=== PATIENT | male | born 1985 | race Caucasian/White ===

== ENCOUNTER → 2016-08-11 | Day surgery (SDC) | payer OTHER ==
--- NOTE | 2016-08-10 17:17 | History and Physical ---
"History & Physical Date of Service August 10, 2016. History & Physical Chief Complaint: follow up valvular heart disease, permanent pacemaker History of Present Illness: Luis Gallagher Is a 31-year-old male who had recently been seen in cardiology consultation by the undersigned to establish care on 07/14/2016. He had previously followed with cardiology note patrica flores to consolidate his cardiac care to the [facility] system as he already follows with Dr. Michael of nephrology and Dr Julian of cardiothoracic surgery. His history dates back to 2007 when he presented to the emergency department in [place] with acute kidney failure at the age of 22. He describes having needed emergency dialysis at that time initially through a temporary right internal jugular dialysis catheter. He was subsequently diagnosed with IgA nephropathy and required hemodialysis. 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 He describes having had a bioprosthetic aortic valve replacement in [place] due to concerns of [place] aortic valve endocarditis in 2009. He states that 6 months later he was hospitalized at [facility] due to concerns of endocarditis that perhaps never completely resolved and affected his bioprosthetic aortic valve and also caused conduction system disease and therefore he underwent redo aortic valve replacement with placement of a homograft in the aortic valve position as well as a dual-chamber Medtronic permanent pacemaker in 2010. 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 In 2011 he underwent a kidney transplant and has been off of hemodialysis. In January, he was initially hospitalized in [place] with chest discomfort that was felt to perhaps be due to pericarditis. An echocardiogram however revealed an echodensity on the aortic valve homograft and he was transferred to [facility] for another opinion. A transesophageal echocardiogram performed at [facility] on 02/04/2016 revealed heavy calcification of the aortic valve homograft with a large mobile echodensity attached aortic valve leaflets was felt to represent vegetation or degenerative changes of the valve. Severe he centric aortic valve regurgitation was noted as well as moderate prosthetic aortic valve stenosis. There is concern about a small mobile echodensity attached to the pacemaker catheter near the junction of the tricuspid valve. Severe mitral regurgitation was also noted. Moderate tricuspid regurgitation was noted. Surgery was recommended at that time the patient declined and subsequently returned and underwent cardiac surgery in February,. The patient therefore underwent redo median sternotomy, redo aortic valve replacement with a #25 St Kip Epic bioprosthetic AVR, Redo ascending aortic graft replacement with a #30 Gelwave graft, Bioprosthetic mitral valve replacement with a #31 St Kip Epic MVR, and tricuspid valve annuloplasty with # [address] Triad [address] performed by [address] Julian on 03/24/17. The patient has been on Coumadin since his surgery. When I had seen him last month, he denies any chest discomfort. His main concern was determining when he could stop Coumadin. He has since had a recent pacemaker check that revealed appropriate pacemaker function. He is ventricular paced 100% the time. His underlying rhythm is complete AV block with no significant underlying ventricular rhythm. A follow up transthoracic echocardiogram had been performed at [facility] on 07/21/2016 to establish new baseline echocardiogram. Mild concentric left ventricular hypertrophy was present with normal LV EF. Severe left atrial enlargement was noted. Bioprosthetic aortic valve replacement was present. The gradients across the bioprosthetic aortic valve prosthesis were within normal limits. No significant aortic valve prosthesis regurgitation was noted. The mitral valve prosthesis was noted to have borderline elevated is diastolic gradients concerning for obstruction. Further evaluation with transesophageal echocardiogram was therefore recommended. Review of Systems: A Complete Review of 10 Systems is as stated above or negative. 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 Erythrocytosis Other nonspecific finding on examination of urine Acute renal transplant rejection Kidney disease, chronic, stage III (GFR 30-59 ml/min) Carcinoid tumor of stomach Hemangioma Pain in thoracic spine Homograft cardiac valve stenosis Aortic valve stenosis Mitral regurgitation Acute pericarditis Aortic valve regurgitation Endocarditis S/P aortic valve replacement S/P mitral valve replacement with bioprosthetic valve Past Surgical History: Procedure Laterality Date AORTIC VALVE REPLACEMENT WITH CABG WITH PROSTHETIC VALVE 03/24/2016 REPLACEMENT AORTIC VALVE performed by Hilton Julian MD at [facility] AORTIC VALVE REPLACEMENT WITH STENTLESS VALVE 11/05 AORTIC VALVE REPLACEMENT WITH STENTLESS VALVE 05/16/10 redo ASCENDING AORTA GRAFT W/BYPASS,ROOT REPLACE 03/24/2016 ASCENDING AORTIC ANEURYSM GRAFT USING PROSTHESIS AND CORONARY RECONSTRUCTION performed by Hilton Julian MD at OR [facility] BACK/FLANK TUMOR RESECTION, UNDER 5 CM Right 08/21/2015 08/21/2015 RADICAL RESECTION TUMOR BACK OR FLANK performed by Srinivas Brito MD at [facility] CORONARY ANGIOGRAPHY W/LEFT HEART CATH 02/05/2016 CORONARY ANGIOGRAPHY W/LEFT HEART CATH performed by Douglas Zamora MD at CARDIAC LABS [facility] INSER DEANDRA CAT,W/O PUMP;5YR/OLD 01/15/2012 INSERT TUNNELED CENTRAL VENOUS CATHETER* performed by Jerald Portillo MD at RADIOLOGY [facility] RENAL BIOPSY, PERCUTANEOUS (TROCAR/NEEDLE) 01/13/2012 RENAL BIOPSY PERCUTANEOUS performed by Jerry Fontana MD at OR [facility] RENAL BIOPSY, PERCUTANEOUS (TROCAR/NEEDLE) 02/01/2012 RENAL BIOPSY PERCUTANEOUS performed by Jerry Fontana MD at [facility] REPAIR TRICUSPID VALVE, W/RING 03/24/2016 VALVULOPLASTY TRICUSPID VALVE WITH RING performed by Hilton Julian MD at [facility] REPLACE MITRAL VALVE W/BYPASS 03/24/2016 REPLACEMENT MITRAL VALVE performed by Hilton Julian MD at [facility] TRANSPLANTATION OF KIDNEY 04/29/2011 RENAL TRANSPLANT performed by ABDIRIZAK MARIE at [facility] Family History: Mother: at age 52 of unknown causes Father: alive, at age 60, no hear disease Siblings: no heart disease Social History: Social History Marital status: Spouse name: Sharon Occupational History diability Social History Main Topics Smoking status: Former Smoker Packs/day: 0.25 Years: 11.00 Types: Cigarettes Quit date: 04/29/2011 Smokeless tobacco: Never Used Alcohol use No Allergies: Review of patient's allergies indicates no known allergies. Outpatient Medications: Medication Instructions warfarin sodium (COUMADIN) 4 MG Tablet Take as directed by anticoagulation pharmacist. Iron-Vitamin C (VITRON-C) 65-125 MG Tablet Take 1 Tab by mouth 2 times a day. tacrolimus (PROGRAF) 1 MG Capsule 2 mg in the am, 3 mg in the pm levothyroxine (LEVOXYL) 50 MCG Tablet Take 1 Tab by mouth daily first thing in the morning. (at least 30 min prior to breakfast or other meds) mycophenolate mofetil (CELLCEPT) 250 MG Capsule Take 2 Caps by mouth 2 times a day. VITAMIN D 2000 UNITS PO CAPS 3 CAPSULEs DAILY DICLOXACILLIN SODIUM 500 MG PO CAPS 3 times daily OBJECTIVE/PHYSICAL EXAMINATION: Vitals from 07/14/16: BP 120/60 | Pulse 84 | Resp 14 | Wt 177 lbs 9.6 oz ( 80.559kg) | BMI 26.61 kg/m | BSA 1.97 m General: no acute distress and stated age Eyes: conjunctiva are pink and non-injected, sclera clear Neck: normal jugular venous pulse, no hepatojugular reflux Chest: normal shape and normal respiratory effort Lungs: clear to auscultation and percussion Cardiac Exam: - regular heart sounds, no murmurs, rubs, or gallops Abdomen: abdomen soft, non-tender, no abnormal masses and no hepatosplenomegaly Musculoskeletal: no gait disturbance, no weakness Extremities: no edema and no cyanosis Neuro: grossly normal exam Psych: appropriate affect and insight. Data: INR performed 08/04/2016 was 3 complete blood count dated 07/17/2016: WBC 8.19, hemoglobin 14, platelet count 258 chemistry panel 07/17/2016: BUN 28, creatinine 1.7, calculated GFR 51.1, sodium 136, potassium 4.7, chloride 102 CO2 21, calcium 9.5, calcium 3.8 IMPRESSION: 31 year old year old male with history of complex valvular heart disease and conduction system disease requiring pacemaker. On 03/24/2016 he underwent redo median sternotomy with bioprosthetic aortic valve replacement (third AVR), bio MVR, and TV annuloplasty ring. He has a prior history of dual-chamber Medtronic permanent pacemaker that was placed due rupinder-aortic valvular abscess with conduction system complications at the time of his second heart surgery in 2010. The patient has a history of IgA nephropathy, transient dialysis, and underwent kidney transplant in 2011 he seems stable from a kidney standpoint on chronic immunosuppressive therapy. Recent transthoracic echocardiogram has suggested elevated diastolic gradients across the mitral valve concerning for mitral stenosis. RECOMMENDATIONS/PLAN: Recommend proceeding with CARIDAD for further assessment of the MV prosthesis as well as the AV prosthesis and TV repair. His recent blood work revealed stable findings. Raman Villalta DO"
[2016-08-11] VITALS (11 sets, daily range): BP systolic 90–139; BP diastolic 42–86; PULSE 76–90; TEMP 36.8; O2SAT 95–100; Ht 172.7 cm; Wt 82.0 kg
[~2016-08-11] VITALS: Ht 172.7 cm; Wt 82.0 kg
[~2016-08-11] MED LIST: CHOL2000 PO; DCL/500 PO; ETOMIDATE 2 MG/ML 20 ML VIAL IV ONE; FERRTAB18 PO; LEVO50TA6 PO; LIDOCAINE HCL 2% 2 ML VIAL (20MG/ML) ONE; METO25TA3 PO; MYCO250C26 PO; PROPOFOL IV EMULSION 10 MG/ML 20 ML VIAL IV ONE; TACR1CAP PO; WARF-283 PO
--- NOTE | 2016-08-11 08:17 | History & Physical Bridge Note ---
H&P Re-Evaluation Bridge Note: I have examined the patient, reviewed the History & Physical and in the interval since the performance of the History & Physical I have noted the following changes of clinical significance: Last Vital Signs Documentation Date Time Temp Pulse Resp B/P Pulse Ox O2 Delivery O2 Flow Rate FiO2 08/11/16 07:40 90 18 122/73 100 Nasal Cannula 4 08/11/16 07:05 36.8 Patient reports recent cold symptoms with sore throat and runny nose x 48 hours. No cough. No shortness of breath. No fever. Feeing better today compared to yesterday. Otherwise no changes noted. Informed consent for CARIDAD obtained. Patient elects to proceed.
--- NOTE | 2016-08-11 08:20 | Cardiology Procedure Brief Nt ---
Preliminary Cardiology Note Procedure Date August 11, 2016. Pre-Procedure Diagnosis rule out prosthetic MV stenosis Post-Procedure Diagnosis normal MV leaflet excursion Procedure(s) Performed CARIDAD [employer] Counselor Sb Villalta DO Accounting Administrative Assistant(s) DINESH Weiss Estimated Blood Loss none Preliminary Findings The diastolic gradient across the MV is elevated, however there is normal leaflet excursion and no prosthetic MS. Recommendations Continue current medications with exception that metoprolol is to be discontinued. Specimens none Drains none Anesthesia Administered by Dr Carrion. Propofol 460 mg IV , lidocaine 40 mg IV Complication(s) None Disposition Cardiac lab engineer prep area , then DC to home
--- NOTE | 2016-08-11 08:24 | Discharge Instructions ---
Discharge Instructions Procedure Procedure Date: August 11, 2016. Reason for Visit: Rule out prosthetic MV stenosis Discharge Discharge Date: August 11, 2016. Discharge Diagnosis: appropriate MV function Last Recorded Wt (Kilograms): 82 Anesthesia Post Anesthesia Instructions: If you have had General Anesthesia or IV Sedation: * Do not drive today. * Resume driving when surgeon permits. * Do not make important decisions or sign legal documents today. * Call surgeon for: 1. Temperature elevations greater than 101 degrees F. 2. Uncontrollable pain. 3. Excessive bleeding. 4. Persistent nausea and vomiting. 5. Medication intolerance (nausea, vomiting or rash). * For nausea and vomiting use only clear liquids such as: tea, soda, bouillon until nausea subsides, then gradually increase diet as tolerated. * If you have any concerns or questions, call your surgeon's office. If physician is unavailable and it is an emergency, call 911 or go to the nearest emergency room. Instructions Activity Recommendations: limitations as noted below Recommended Home Diet: resume previous diet Allergies: Coded Allergies: No Known Allergies (Unverified , 08/11/16) Provider Instructions ACTIVITY RECOMMENDATIONS: Resume activities as tolerated with no limitations unless specified. _x_ No lifting over 10__ pounds for 24 hours. _x_ Do not engage in vigorous exercise, sexual activity, or sports for 24 hours. _x_ Do not drive or operate any motorized equipment for 24 hours. _x_ You may return to work/school tomorrow. _x_ Nothing to eat or drink until gag reflex returns. _x_ No HOT or WARM liquids for 24__ hours. _x_ Avoid "scratchy" foods such as potato chips or pretzels for 24 hours following procedure. SPECIAL CARE: If you experience coughing up or vomiting of blood, contact Dr Villalta ___ ___ Follow Up Follow-up with: Dr Villalta as planned. [facility] Recommendations: Call your doctor if: * Temperature above 101 degrees * Pain not relieved by pain medicine ordered * There is increased drainage or redness from any incision * You have any unanswered questions or concerns. Your Doctors Instructions noted above were prepared by provider Raman Villalta. Patient Signature Section: Patient Instructions Signature Page Luis Gallagher Patient (or Guardian) Signature/Date: I have read and understand the instructions given to me by my caregivers. Caregiver/RN/Doctor Signature/Date: The above-named patient and/or guardian has received patient instructions on this date. + Original Patient Signature Page (only) stays with chart. Please make copy for patient.
--- NOTE | 2016-08-11 08:52 | Anesthesiology Progress Note ---
Anesthesia Post Op Note Date & Time August 11, 2016 at 08:52 Vital Signs Pain Intensity: 0 Vital Signs Past 12 Hours Date Time Temp Pulse Resp B/P Pulse Ox O2 Delivery O2 Flow Rate FiO2 08/11/16 08:50 74 18 108/77 98 Room Air 08/11/16 08:40 75 18 109/75 98 Room Air 08/11/16 08:30 82 18 117/64 98 Room Air 08/11/16 08:20 81 18 105/60 98 Nasal Cannula 4 08/11/16 08:15 79 18 107/62 98 Nasal Cannula 4 08/11/16 08:10 86 18 90/45 98 Nasal Cannula 4 08/11/16 08:05 85 18 96/42 98 Nasal Cannula 4 08/11/16 08:00 87 18 96/53 98 Nasal Cannula 4 08/11/16 07:55 87 18 106/56 97 Nasal Cannula 4 08/11/16 07:50 88 18 107/59 95 Nasal Cannula 4 08/11/16 07:45 90 18 108/65 98 Nasal Cannula 4 08/11/16 07:40 90 18 122/73 100 Nasal Cannula 4 08/11/16 07:35 89 18 134/86 100 Nasal Cannula 4 08/11/16 07:05 36.8 83 18 139/74 98 Room Air Notes Mental Status: alert / awake / arousable, participated in evaluation Pt Amnestic to Procedure: Yes Nausea / Vomiting: adequately controlled Pain: adequately controlled Airway Patency, RR, SpO2: stable & adequate BP & HR: stable & adequate Hydration State: stable & adequate Anesthetic Complications: no major complications apparent
--- NOTE | 2016-08-11 09:16 | TEE ---
*NOTICE TO RECEIVING REPUBLICAN AGENCY This information is strictly Confidential and protected under [place] law. [place] law prohibits you from making any further disclosure of this information unless further disclosure is expressly permitted by the written consent of the person to whom it pertains or is authorized by law. A general authorization for the release of medical or other information is not sufficient for this purpose. Hospital accepts no responsibility if the information is made available to any other person, INCLUDING THE PATIENT. Interpretation Summary * Name: CHIP FANG Study Date: 08/11/2016 07:30 AM BP: 128/80 mmHg * Patient Location: [facility] HR: 88 * : 1985 (M/d/yyyy) Gender: Male Height: 68 in * Age: 31 yrs Ethnicity: CA Weight: 180 lb * Ordering Physician: Raman Villalta DO, [facility] * Performed By: Prerna Linda * * Reason For Study:Exclude prosthetic mitral valve stenosis. History of #31 St Kip Eic Bio MVR, #25 St Kip Epic bio AVR, #30 Triad TV ring * BSA: 2.0 m2 * Sedation supervised by Dr Carrion of Anesthesiology. * -- Conclusions -- * There is a bioprosthetic mitral valve. * The prosthetic mitral valve leaftlets are well visualized. * The leaflets are thin an freely mobile with no restriction. * Prosthetic mitral regurgitation is absent. * There is a calculated diastolic gradient of 9.5 mm Hg across the mitral valve. * Given normal leaflet function, data suggests that the transmitral gradient is a physiologic consequence of high flow state without mitral valve prosthesis dysfunction. * There is a bioprosthetic aortic valve. * There is no significant intravalvular or perivalvular aortic regurgitation. * The study was insufficient to evaluate for prosthetic AV stenosis , however, the prosthetic aortic valve gradients were normal on the recent transthoracic echocardiogram. Procedure Details * The transesophageal portion of this study was personally supervised by the undersigned interpreting physician. * CARIDAD Probe #3 utilized for procedure. 460 mg of Propofol and 40 mg of Lidocaine were used during the procedure. Probe was inserted at 7:40am Probe was taken out at 8:10am. * The study was performed in Cardiac Catheterization Lab. * Time out was conducted by the physician, nurse, and live truck technician with positive identification of patient and procedure. * Informed consent for Transesophageal Echocardiogram was obtained prior to the procedure. * An intravenous line was placed. A topical anesthetic agent was used for oropharangeal anesthesia. A bite block was inserted. * Sedation performed by the anesthesia department. * The patient's vital signs, including blood pressure, heart rate, pulse oximetry and cardiac rhythm were monitored throughout the procedure . * A multifrequency, multiplane transesopheageal echocardiographic endoscope was inserted and manipulated in the standard fashion to achieve multiplane views. * The transesophageal probe was passed without difficulty. * The usual views were obtained; basal, mid-esophageal, transgastric and aortic views. * The patient tolerated the procedure well without evidence of orophangeal or esophageal trauma. * A 2D transesophageal echocardiogram with spectral and color flow Doppler was performed. * Contrast injection with agitated saline was performed. * A 2D transesophageal echocardiogram was performed. * A 2D transesophageal echocardiogram with color flow Doppler was performed. * A 2D transesophageal echocardiogram with Doppler and color flow Doppler was performed. Left Ventricle * The left ventricle is normal in size. * There is normal left ventricular wall thickness. * Left ventricular systolic function is normal. * Ejection Fraction = 55-60%. * The left ventricular wall motion is normal. Right Ventricle * The right ventricle is normal in size and function. * There is a pacemaker lead in the right ventricle. Atria * The left atrium is severely dilated. * No thrombus is detected in the left atrial appendage. * No left atrial mass or thrombus visualized. * The right atrium is mildly dilated. * There is a pacemaker lead noted in the right atrium. * The interatrial septum is intact with no evidence for an atrial septal defect. Mitral Valve * There is a bioprosthetic mitral valve. * The prosthetic mitral valve leaftlets are well visualized. The leaflets are thin an freely mobile with no restriction. Prosthetic mitral regurgitation is absent. There is a calculated diastolic gradient of 9.5 mm Hg across the mitral valve. Given normal leaflet function, data suggests that the transmitral gradient is a physiologic consequence of high flow state without mitral valve prosthesis dysfunction. Tricuspid Valve * There is evidence of tricuspid valve repair with annuloplasty ring. * There is mild tricuspid valve regurgitaiton. Tricuspid valve stenosis is absent. Aortic Valve * There is a bioprosthetic aortic valve. * There is no significant intravalvular or perivalvular aortic regurgitation. The study was insufficient to evaluate for prosthetic AV stenosis , however, the prosthetic aortic valve gradients were normal on the recent transthoracic echocardiogram. Pulmonic Valve * The pulmonic valve is not well seen, but is grossly normal. Great Vessels * The aortic root is normal size. * Ascending aorta of normal dimension Pericardium * There is no pericardial effusion. Doppler Measurements and Calculations MV V2 mean 135.2 cm/sec MV mean PG 9.5 mmHg MV V2 VTI 39.7 cm
== END | disposition home or self-care (01) ==
LOC: C.CATH 06:45
PROVIDERS: ATTEND Specialist
DX: I38 Endocarditis, valve unspecified (principal); Z99.2 Dependence on renal dialysis; N18.3 Chronic kidney disease, stage 3 (moderate); Z94.0 Kidney transplant status; Z79.01 Long term (current) use of anticoagulants; Z95.0 Presence of cardiac pacemaker; Z87.891 Personal history of nicotine dependence; Z95.4 Presence of other heart-valve replacement; Z95.2 Presence of prosthetic heart valve; Z98.890 Other specified postprocedural states

== ENCOUNTER 2017-01-06 11:11 | Day surgery (SDC) | payer OTHER ==
[~2017-01-06] VITALS: Ht 175.3 cm; Wt 80.0 kg
[~2017-01-06 11:11] MED LIST changes: +CEFAZOLIN 1000MG/55 ML D5W IV SCH; -ETOMIDATE 2 MG/ML 20 ML VIAL IV ONE; -FERRTAB18 PO; -LIDOCAINE HCL 2% 2 ML VIAL (20MG/ML) ONE; -METO25TA3 PO; -PROPOFOL IV EMULSION 10 MG/ML 20 ML VIAL IV ONE
[2017-01-06 11:44] VITALS: BP 140/90; PULSE 72; TEMP 37; O2SAT 99; Ht 175.3 cm; Wt 80.0 kg
--- NOTE | 2017-01-06 11:48 | History & Physical Bridge Note ---
H&P Re-Evaluation Bridge Note: I have examined the patient, reviewed the History & Physical and in the interval since the performance of the History & Physical I have noted the following changes of clinical significance: pt with elevated RV threshold in addition to ppm at [facility]; he is for a new RV pacing lead insertion and ppm gent change
--- NOTE | 2017-01-06 11:48 | Procedure Note ---
Pre-Mod Sedation Assessment General Date of Moderate Sedation: Jan 06, 2017. Review Cardiovascular: regular rate, rhythm, + systolic murmur Abdomen: soft Lungs: lungs clear Airway Class: II Pre-Sedation Airway Assessment Oral Cavity: WNL Short Thick Neck: No Hx of Sleep Apnea: No Smoking Status: Former Smoker Mallampati Classification: Class II ASA Classification: Class II Procedure Planning Contraindications-for Mod Sed: None Yes Notes The planned sedation has been discussed with the patient and consent obtained. I have identified the patient, determined the appropriateness of sedation and have assessed the patient immediately prior to the procedure. All medicine(s) and interventions are by my order.
[2017-01-06] MEDS ORDERED: LIDOCAINE HCL 1% 20 ML VIAL ONE (12:40)
[2017-01-06] MEDS ORDERED: BACITRACIN 50000 UNIT VIAL ONE (12:40)
[2017-01-06] MEDS ORDERED: ONDANSETRON INJ 2 MG/ML 2 ML VIAL ONE (12:50)
[2017-01-06] MEDS ORDERED: FENTANYL CITRATE INJ 50 MCG/1 ML 2 ML VIAL ONE ×4 (12:52→14:19)
[2017-01-06] MEDS ORDERED: MIDAZOLAM HCL 5 MG/ML 1 ML VIAL ONE ×2 (12:52→13:16)
[2017-01-06] MEDS ORDERED: MIDAZOLAM HCL 1 MG/ML 2ML VIAL ONE (14:19)
--- NOTE | 2017-01-06 14:33 | Discharge Instructions ---
Discharge Instructions Date of Service Jan 06, 2017. Visit Reason for Visit: Complete Heart Block Discharge Discharge Diagnosis / Problem: PPM AT [facility], [facility] Discharge Goals Goal(s): Improve function Activity Recommendations Activity Limitations: as noted below Lifting Limitations: no more than 10 pounds (NO HEAVY LIFTING WITH THE LEFT ARM FOR 1 WEEK) Shower/Bathe: tomorrow Driving or Machine Use: resume 1 day after discharge Anesthesia . Post Anesthesia Instructions: If you have had General Anesthesia or IV Sedation: * Do not drive today. * Resume driving when surgeon permits. * Do not make important decisions or sign legal documents today. * Call surgeon for: 1. Temperature elevations greater than 101 degrees F. 2. Uncontrollable pain. 3. Excessive bleeding. 4. Persistent nausea and vomiting. 5. Medication intolerance (nausea, vomiting or rash). * For nausea and vomiting use only clear liquids such as: tea, soda, bouillon until nausea subsides, then gradually increase diet as tolerated. * If you have any concerns or questions, call your surgeon's office. If physician is unavailable and it is an emergency, call 911 or go to the nearest emergency room. . Diet Recommendations Recommended Home Diet: resume previous diet Pending Studies Studies pending at discharge: no Medical Emergencies . Who to Call and When: Medical Emergencies: If at any time you feel your situation is an emergency, please call 911 immediately. . Non-Emergent Contact Non-Emergency issues call your: Hse Coordinator . . "Provider Documentation" section prepared by Luli Garsia. .
--- NOTE | 2017-01-06 14:35 | [facility] Post Operative Brief Note ---
Immediate Operative Summary Operative Date Jan 06, 2017. Pre-Operative Diagnosis [facility]B, PPM AT [facility] Post-Operative Diagnosis SAME Procedure(s) Performed DUAL CHAMBER RATE RESPONSIVE PERMANANT PACEMAKER GENERATOR CHANGE Surgeon JEANNETTE PALACIOS Advertising Rep Surgeon(s) NONE Estimated Blood Loss <5CC Findings SEE OFFICIAL REPORT Fluids (cc crystalloids) 300CC Specimens NONE Drains NONE Anesthesia 11MG VERSED AND 300MCG FENTANYL Complication(s) None Disposition ASU
--- NOTE | 2017-01-06 14:35 | Procedure Note ---
Post-Mod Sedation Assessment General Date of Moderate Sedation Jan 06, 2017. Vital Signs: Vital Signs Past 12 Hours Date Time Temp Pulse Resp B/P (MAP) Pulse Ox O2 Delivery O2 Flow Rate FiO2 01/06/17 14:20 76 16 114/79 (91) 96 Room Air 01/06/17 11:44 37 72 18 140/90 (107) 99 Room Air Review - Discharge Criteria Vital Signs Stable: Yes Alert/Oriented/Conversant: Yes Returned to Baseline Mental St: Yes Nausea Absent/Minimal: Yes Pain/Discomfort/Absent/Minimal: Yes Normal/Baseline Respirations: Yes Active Bleeding?: No Pt Received D/C Instructions: N/A Prescriptions Given: None Specific Proced. D/C Criteria Distal Pulses Present (Cardiac: N/A Groin site assessed-Card Cath: N/A Voided Prior To Discharge: N/A Discharged Patients Adult Escort/Transportation: N/A
[2017-01-06 14:53] VITALS: BP 140/81; PULSE 75; TEMP 36.9; O2SAT 97
[2017-01-06 15:08] VITALS: BP 145/75; PULSE 78; O2SAT 98
[2017-01-06 15:23] VITALS: BP 135/89; PULSE 80; O2SAT 99
--- NOTE | 2017-01-06 16:03 | OPERATIVE REPORT ---
DATE OF OPERATION: 01/06/2017 PREOPERATIVE DIAGNOSES: Complete heart block, pacemaker at elective replacement indicator, elevated right ventricular threshold. POSTOPERATIVE DIAGNOSES: Same in addition to occluded right venous upper extremity system and occluded right femoral, subclavian veins and jugular vein. PROCEDURE: Dual chamber rate responsive permanent pacemaker generator change in addition to peripheral venogram. SURGEON: Luli Garsia DO HEEL VARNISHER: None. ANESTHESIA: Monitored conscious sedation administered under my supervision by Jackie Conrad. Start time 12:53. End time 14:20, total of 11 mg of Versed and 300 mcg of fentanyl. INTRAVENOUS FLUIDS: 300 mL. ESTIMATED BLOOD LOSS: Less than 10 mL. COMPLICATIONS: None. CONDITION: Stable. URINE OUTPUT: Not applicable. SPECIMENS: None. FINDINGS: None. DRAINS: None. 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 Of note, 4 days later, the atrial lead had dislodged and they had to go back in and reposition the atrial lead, and a third AVR was performed about 2 years ago secondary to a valvular stenosis. He has subsequently off dialysis and had a kidney transplant and he has chronic back pain. At the most recent pacemaker check, he was found to hit MARY and was recommended a pacemaker generator change along with possible lead revision or new RV pacing lead implant secondary to the RV threshold being elevated on initial pacing lead. CONSENT: Consent was obtained prior to the patient going into electrophysiology lab. The patient was informed of risks, benefits and alternatives to the procedure. Risks include but not limited to sudden cardiac ; cardiac arrhythmias; cerebrovascular accident; myocardial infarction; injury to the blood vessels, chamber of the heart, lungs, bleeding and infection. The patient understood these risks and agreed to go to the procedure as planned. Informed consent was obtained. DESCRIPTION OF THE PROCEDURE: The patient was brought into the electrophysiology lab in fasting state. He was connected to continuous cardiac monitoring. A timeout was performed to ensure the patient identity and procedure. The patient received prophylactic antibiotics prior to incision. Then before draping, a peripheral venogram was performed through the right upper extremity where he was found to have collaterals and occluded right subclavian vein as well as right femoral vein. We then got an IV access in the left side and the left system venogram was performed which showed that there is a nice cephalic and the axillary and subclavian veins are all patent on the left side. At this juncture that I called my colleague, Dr. Mack to review the case with him to find out what the best of action would be from moving on further. We decided that it was best since the right ventricular pacing lead have been stable at 2.5 volts that we would continue with just doing a pacemaker generator change and no lead revision leaving the left side patent and if in the future the right ventricular pacing lead completely started to fell. The patient was then prepped and draped over the right infraclavicular space in a normal surgical standard fashion. Moderate conscious sedation was given throughout the procedure for patient's comfort level. Of note, before the patient even got any sedation, he was on the table and his nurse got to him and he vomited a little. He was given 4 mg of Zofran and Lafe precautions were maintained throughout the procedure. A 20 mL of 1% lidocaine, bupivacaine mixture were given over the prior surgical incision. Incision was made over the prior surgical incision. Blunt dissection was performed down to identify the prior pulse generator. The capsule was disrupted using iris scissors and the pulse generator was ultimately freed from the capsule. There was a lot of capsular calcified tissue. The leads were checked intraoperatively, see below for results. The new pulse generator was attached to the leads making sure that the pins were in appropriate position, passed the set screws and the set screws were all tightened. The capsule was disrupted inferiorly and caudally to allow for any retained blood flow. The pocket was flushed with copious amounts of bacitracin saline wash and inspected for hemostasis. The new pulse generator was then placed in the pocket making sure that the leads were lying flat beneath the device. The incision was then closed in 3-layer fashion using a 2-0 Vicryl interrupted suture, followed by a 3-0 Vicryl interrupted suture, followed by a 4-0 Monocryl running stitch and Dermabond was applied. EQUIPMENT: 1. Explanted generator is an Adapta large DR model number ADDRL1, serial number [id number] implanted 05/12/2010, MARY of 12/06/2016 with the voltage at 2.58. 2. The new pulse generator is a [employer] Adapta L ADDRL1, serial number [id number]. 3. The right atrial lead model number 5076-45, serial number [id number], implanted 05/12/2010. 4. Right ventricular lead model number 4092-52, serial number [id number], implanted 05/12/2010. INTRAOPERATIVE TESTIN. Right atrial lead: P-wave 3.2 millivolts, impedance 538 ohms, threshold 0.5 volts. 2. Right ventricular lead: No R-waves as the patient has complete heart block, impedance 540 ohms, threshold is 2.5 volts at 0.5 milliseconds. FINAL MEASUREMENTS THROUGH THE DEVICE: 1. Right atrial lead: P-wave 2.8 millivolts, impedance 475 ohms, threshold 0.5 volts at 0.4 milliseconds. 2. Right ventricular lead R waves are none since his complete heart block, impedance 552 ohms, threshold 2.5 volts at 0.5 milliseconds. FINAL PARAMETERS: DDDR 60/160, right atrial amplitude at 1 volt, pulse width 0.4 milliseconds, sensitivity 0.5 millivolts. Right ventricular amplitude 5 volts, pulse width 0.52 milliseconds, sensitivity 2.8 millivolts. IMPRESSION: Successful rate responsive dual chamber permanent pacemaker generator change secondary to complete heart block and device at elective replacement indicator along with peripheral venogram showing occluded right jugular vein and subclavian vein. PLAN: Monitor patient post-sedation. He can continue his home medications. He did ask for some tramadol for pain which he usually takes for his back pain the last time he had that filled based on the [place] Drug Prescription Monitoring Program was 12/14/2016 where he had 30 pills refilled he takes them about 3 times a day and he says he is out. I prescribed him 20 pills at 50 mg. He can remove the pressure dressing tomorrow. He can shower tomorrow as well as drive and he should follow up in our [facility] in 7-10 days for device and wound check. I attest to the content of the Intraoperative Record and any orders documented therein. Any exception s are noted below.
[2017-01-08] MEDS ORDERED: CEFAZOLIN IV 1,000 MG in DEXTROSE 5% 50ML IV SCH (06:00)
[2017-01-08] MEDS ORDERED: LACTATED RINGER'S 1000ML IV SCH (06:00)
== END 2017-01-06 15:30 | disposition home or self-care (01) ==
LOC: C.ACU 11:11
PROVIDERS: ATTEND Internal Medicine
DX: I44.2 Atrioventricular block, complete (principal); Z45.010 Encounter for checking and testing of cardiac pacemaker pulse generator [battery]; R94.39 Abnormal result of other cardiovascular function study; I82.B12 Acute embolism and thrombosis of left subclavian vein; I82.601 Acute embolism and thrombosis of unspecified veins of right upper extremity; I82.C11 Acute embolism and thrombosis of right internal jugular vein; Z94.0 Kidney transplant status; N18.3 Chronic kidney disease, stage 3 (moderate); Z95.2 Presence of prosthetic heart valve; Z95.4 Presence of other heart-valve replacement; Z98.890 Other specified postprocedural states; Z79.82 Long term (current) use of aspirin; Z83.3 Family history of diabetes mellitus; Z87.891 Personal history of nicotine dependence